=== PATIENT | male | born 1995 | race Two or more races ===

== ENCOUNTER 2024-12-16 16:41 | Emergency (ER) | payer MEDICAID, OTHER ==
[~2024-12-16] VITALS: Ht 175.3 cm; Wt 127.0 kg
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
--- NOTE | 2024-12-16 17:53 | DVH ---
CHEST RADIOGRAPH Indication: injury Technique: Single frontal view of the chest was obtained COMPARISON: None FINDINGS: Lines and Tubes: None Lungs: Lung volumes are low. No pulmonary infiltrates or edema. Pleura: No effusion. No pneumothorax. Cardiomediastinal contours: Unremarkable IMPRESSION: Low lung volumes. No abnormality demonstrated.
--- NOTE | 2024-12-16 17:56 | DVH ---
EXAM: XY L SHOULDER 2+ VIEW XRAY CLINICAL HISTORY: injury COMPARISON: None TECHNIQUE: XY L SHOULDER 2+ VIEW XRAY Findings/Impression: 2 views of the left shoulder. Mildly displaced fractures of the left humeral neck and greater tuberosity. There is no evidence of dislocation, blastic, or lytic lesions. No radiopaque foreign bodies.
--- NOTE | 2024-12-16 17:58 | DVH ---
EXAM: XY R KNEE 3V XRAY CLINICAL HISTORY: injury COMPARISON: None TECHNIQUE: XY R KNEE 3V XRAY Findings/Impression: 3 views of the right knee. Moderately displaced and depressed fracture of the medial tibial plateau with intra-articular extensi on. Moderate lipohemarthrosis. There is no evidence of dislocation, blastic, or lytic lesions. No radiopaque foreign bodies.
--- NOTE | 2024-12-16 17:58 | DVH ---
XY R SHOULDER 2+ VIEW XRAY INDICATION: injury TECHNICAL DATA: 3 views were obtained of the right shoulder. COMPARISON: None FINDINGS: Mildly displaced fracture of the right humeral neck. The glenohumeral joint is normally maintained. T he acromioclavicular joint appears normal. The humeral head is not high riding. Adjacent soft tissues are within normal limits. Degenerative changes are noted involving the visualized spine. IMPRESSION: Mildly displaced fracture of the right humeral neck.
[2024-12-16 18:54] LABS: Basophils # (auto) 0 10 ^3/uL (0-0.2); Basophils % (auto) 0.2 % (0.0-2.0); Eosinophils # (auto) 0 10 ^3/uL (0-0.8); Eosinophils % (auto) 0.2 % (0.0-7.0); Hematocrit 43.9 % (41.0-53.0); Hemoglobin 14.5 g/dL (13.5-17.5); Lymphocytes # (auto) 1.2 10 ^3/uL (0.4-5.4); Mean Corpuscular Hemoglobin 29.4 pg (28.0-32.0); Mean Corpuscular Hgb Conc. 32.9 g/dL (32.0-36.0); Mean Corpuscular Volume 89.4 fL (80.0-100.0); Monocytes # (auto) 0.7 10 ^3/uL (0-1.3); Monocytes % (auto) 3.8 % (0.0-12.0); Neutrophils # (auto) 17.3 10 ^3/uL (1.6-8.6); Neutrophils % (auto) 89.8 % (37.0-80.0); Nucleated Red Blood Cells % 0.1 %; Platelet Count (auto) 236 10^3/uL (140-450); Red Blood Cells 4.92 10^6/uL (4.5-5.90); Red Cell Distribution Width 13.4 % (11.8-14.3); White Blood Cell 19.3 10^3/uL (4.4-10.8)
--- NOTE | 2024-12-16 19:21 | DVH ---
EXAM: XY R FEMUR XRAY CLINICAL HISTORY: injury COMPARISON: None TECHNIQUE: XY R FEMUR XRAY Findings/Impression: 2 views of the right femur. Mildly displaced and depressed fracture of the medial tibial plateau with intra-articular extension. There is no evidence of dislocation, blastic, or lytic lesions. No radiopaque foreign bodies. No joint effusion or superficial soft tissue abnormalities.
[2024-12-16 19:25] LABS: Sodium 139 mmol/L (136-145)
[2024-12-16 19:26] LABS: Anion Gap 10 (5-15)
[2024-12-16 19:27] LABS: Calcium 9.8 mg/dL (8.7-10.4)
--- NOTE | 2024-12-16 19:31 | DVH ---
CLINICAL INDICATION: injury TECHNIQUE: XY L WRIST 3+ VIEW XRAY Comparison: None FINDINGS: No osseous or joint abnormality with no fracture or dislocation. Joint spaces are normal. IMPRESSION: No abnormality demonstrated.
[2024-12-16 19:32] LABS: Blood Urea Nitrogen 12 mg/dL (9-23)
[2024-12-16 19:33] LABS: Carbon Dioxide 19 mmol/L (20-31); Chloride 110 mmol/L (98-107); Glucose 119 mg/dL (74-106); Potassium 3.4 mmol/L (3.5-5.1)
[2024-12-16 20:33] VITALS: PULSE 110; RESP 18; TEMP 99; O2SAT 95
[2024-12-16] MEDS: fentaNYL CITRATE 100 MCG/2 ML VL IM ONE (21:15)
[2024-12-16 21:16] VITALS: BP 156/75
[2024-12-16] MEDS: fentaNYL CITRATE 100 MCG/2 ML VL IV ONE (21:16)
== END 2024-12-16 21:55 | disposition short-term general hospital (02) ==
LOC: ER 16:41 → EDBD 16:41 → ER 21:17
DX: S82.141A Displaced bicondylar fracture of right tibia, initial encounter for closed fracture (principal); S42.212A Unspecified displaced fracture of surgical neck of left humerus, initial encounter for closed fracture; S42.211A Unspecified displaced fracture of surgical neck of right humerus, initial encounter for closed fracture; W18.30XA Fall on same level, unspecified, initial encounter; Y93.89 Activity, other specified; Y92.89 Other specified places as the place of occurrence of the external cause; Y99.8 Other external cause status
CPT/HCPCS: 29105; 29505; 36415; 71045; 73030; 73110; 73552; 73562; 80048; 85025; 96374; 99285; J3010